=== PATIENT | male | born 1980 | race African-American/Black ===

== ENCOUNTER 2018-01-14 20:48 | Emergency (ER) | payer SELFPAY ==
[~2018-01-14] VITALS: Ht 180.3 cm; Wt 100.0 kg
[2018-01-14 21:04] VITALS: BP 158/96; PULSE 112; RESP 16; TEMP 98.4; O2SAT 99
[2018-01-14] MEDS ORDERED: TETANUS/DIPHTHERIA TOXOID ADULT 0.5 ML VIAL IM ONE (21:30)
[2018-01-14] MEDS ORDERED: LIDOCAINE 1%/EPINEPHrine 1:100,000 SOLN 20 ML VIAL INFIL ONE (21:30)
[2018-01-14] MEDS ORDERED: IBUP1TAB7 PO (21:52)
--- NOTE | 2018-01-14 21:53 | PD ---
HPI Chief Complaint: Laceration/Skin Injury Time Seen by Provider: 21:25 Travel History International Travel<30 days: No Contact w/Intl Traveler<30days: No Traveled to known affect area: No History of Present Illness HPI Patient is a 29-year-old male presenting to the emergency department for evaluation left lower leg. Patient states he slipped on a metal step at home subsequently causing a laceration. He denies any other injury or trauma. He denies ankle pain or foot pain. His tetanus vaccine is not up-to-date. Symptoms are mild, symptom onset was sudden. [facility] Past Medical History Medical History: Denies Significant Hx Hypertension: Yes Tetanus Vaccination: Unknown Past Surgical History Surgical History: No Previous Surgery Social History Alcohol Use: Yes (occas) Tobacco Use: Yes (1 pck/week cigars) Substance Use: No Allergies-Medications (Allergen,Severity, Reaction): Coded Allergies: No Known Allergies (Unverified , 01/14/18) Review of Systems Except as stated in HPI: all other systems reviewed are Neg Skin: Positive Other (Laceration) Physical Exam Narrative GENERAL: Well-developed, well-nourished, alert -[place] male. Presenting in no acute distress. SKIN: Warm and dry. 3 cm superficial laceration to the anterior aspect of the left lower leg just proximal to the ankle. Base of wound is well visualized. HEAD: Normocephalic. EYES: No scleral icterus. No injection or drainage. NECK: Supple, trachea midline. No JVD or lymphadenopathy. CARDIOVASCULAR: Regular rate and rhythm without murmurs, gallops, or rubs. RESPIRATORY: Breath sounds equal bilaterally. No accessory muscle use. GASTROINTESTINAL: Abdomen soft, non-tender, nondistended. MUSCULOSKELETAL: No cyanosis, or edema. BACK: Nontender without obvious deformity. No CVA tenderness. Data Data Last Documented VS Vital Signs Date Time Temp Pulse Resp B/P (MAP) Pulse Ox O2 Delivery O2 Flow Rate FiO2 01/14/18 21:04 98.4 112 16 158/96 (116) 99 Room Air Orders Orders Tetanus/Diphtheria Tox Adult (Tetanus/Di (01/14/18 21:30) Lidocai-Epi 1%-1:100,000 Inj (Xylocaine- (01/14/18 21:30) MDM Medical Decision Making Medical Screen Exam Complete: Yes Emergency Medical Condition: Yes Interpretation(s) Vital Signs Date Time Temp Pulse Resp B/P (MAP) Pulse Ox O2 Delivery O2 Flow Rate FiO2 01/14/18 21:04 98.4 112 16 158/96 (116) 99 Room Air Differential Diagnosis Laceration versus abrasion versus contusion versus other Narrative Course Patient is a well-appearing 37-year-old male presenting for evaluation of a laceration to his left lower leg that he sustained at home on a step in his garage. No focal deficits on exam. Please see procedure report for laceration repair. Patient's tetanus vaccine was updated in the emergency department. Patient was given verbal and written instructions on how to care for his stitches. Was advised to return to emergency department 10 days to have stitches removed. He was advised to return sooner for any new or worsening symptoms. Patient verbalized understanding of discharge instructions. Patient stable for discharge. Procedures Procedure Narrative LACERATION LOCATION: Left lower leg LENGTH: 3 cm NUMBER OF STITCHES/ORA: 8 stitches REPAIR: The area of the laceration was prepped with Betadine and sterilely draped. The laceration was infiltrated with 1% lidocaine. The wound was copiously irrigated and explored without evidence of foreign body, tendon injury or neurovascular injury. The wound was closed using 4-0 Ethilon. This was a 1 layer repair. A sterile dressing was applied. The patient was advised to keep the dressing clean and dry. Patient tolerated the procedure well. Diagnosis Primary Impression: Laceration of leg Qualified Codes: S81.812A - Laceration without foreign body, left lower leg, initial encounter Referrals: Primary Care Physician 1 week Patient Instructions: Care For Your Stitches (DC), General Instructions, Laceration (ED) Departure Forms: Tests/Procedures, Work Release Special Instructions: Until stitches are removed no prolonged standing or walking. Elevate extremity. Additional Instructions: Stitches will need to be removed in 10 days, you can return to emergency department or follow-up with your primary doctor Keep stitches clean and dry, cover if there is a chance of soiling. You may leave it open to air at home Return to emergency department immediately for any new or worsening symptoms Follow-up with your primary doctor Med/Other Pt SpecificInfo: Prescription(s) given Scripts Ibuprofen (Ibuprofen) 800 Mg Tab 800 MG PO Q6HR Y for PAIN, #40 TAB 0 Refills Prov: Asha Pritchett 01/14/18 Disposition: 01 DISCHARGE HOME Condition: Stable Asha Pritchett Jan 14, 2018 21:53
== END 2018-01-14 22:03 | disposition home or self-care (01) ==
LOC: NEPD 20:48
DX: S81.812A Laceration without foreign body, left lower leg, initial encounter (principal); I10 Essential (primary) hypertension; W10.8XXA Fall (on) (from) other stairs and steps, initial encounter; Y92.009 Unspecified place in unspecified non-institutional (private) residence as the place of occurrence of the external cause; Z23 Encounter for immunization; Z72.0 Tobacco use
CPT/HCPCS: 12002; 90471; 90714; 99283; L3260